=== PATIENT | male | born 2000 | race Caucasian/White ===

== ENCOUNTER → 2023-03-01 | Outpatient (CLI) | payer OTHER | LOC: MHCPAIN 13:37 | DX: M48.061 Spinal stenosis, lumbar region without neurogenic claudication (principal); M54.16 Radiculopathy, lumbar region | CPT/HCPCS: G0463 ==

== ENCOUNTER → 2023-04-06 | Outpatient (CLI) | payer OTHER | LOC: MHCPAIN 14:07 | DX: M47.896 Other spondylosis, lumbar region (principal); M54.16 Radiculopathy, lumbar region | CPT/HCPCS: G0463 ==